=== PATIENT | female | born 2000 | race Caucasian/White ===

== ENCOUNTER 2019-05-09 19:51 | Emergency (ER) | payer SELFPAY ==
--- NOTE | ~2019-05-09 | XR_ITS ---
EXAMINATION: XR chest 1V portable DATE: 05/09/2019 20:35 INDICATION: Right upper chest pain. TECHNIQUE: A single frontal view of the chest was obtained. COMPARISON: None. FINDINGS: The chest demonstrates clear lungs without pneumonia, pleural effusion, or pneumothorax. Th e heart size is normal. IMPRESSION: 1. No acute cardiopulmonary disease. Reviewed, dictated and finalized at location A.
[2019-05-09 19:55] VITALS: BP 131/81; PULSE 96; RESP 18; TEMP 36.8; O2SAT 100
--- NOTE | 2019-05-09 20:14 | ED.CHESTPAIN ---
HPI - Chest Pain General Chief Complaint: Chest Pain Stated Complaint: chest and rib pains Time Seen by Provider: 05/09/19 19:57 Source: patient Mode of arrival: ambulatory Limitations: no limitations History of Present Illness HPI narrative: A 18 y/o pt has arrived to the ED with c/o intermittent right sided CP that started 2 days ago. Pt reports that exhaling aggravates her pain. The pt notes that sitting up alleviates her pain, but tums did not relieve her pain. She notes that she has not been partaking in any physical activities that could have caused her pain. She states that she woke up one morning and the pain was present and she contributed it to sleeping in a bad position. Pt denies purchasing a new mattress or pillow. She states that when she lays flat she has rib pain. Pt denies rhinorrhea, sneezing, fever, chills, back pain, trouble urinating, or coughing. She also denies a H/O smoking, drinking, or any previous episodes of CP. She also states that she is not taking any form of medication. Her LNMP was 04/13. complaint: chest pain Onset (ago): day(s) (2) Timing of current episode: episodic Prior episodes: No Pain location: right chest Relieving factors: sitting upright Exacerbating factors: other (expiration) Related Data Allergies Allergy/AdvReac Type Severity Reaction Status Date / Time No Known Allergies Allergy Unverified 05/09/19 19:52 Review of Systems Review of Systems: All systems reviewed & are unremarkable except as noted in HPI and below Constitutional: Constitutional: Denies chills and Denies fever(s) ENT: Denies other (rhinorrhea, sneezing) Cardiovascular: Cardiovascular: Reports chest pain and Denies other (previous episodes of CP) Respiratory: Respiratory: Denies cough Genitourinary: Genitourinary: Denies other (trouble urinating) Musculoskeletal: Musculoskeletal: Denies back pain and Reports other (rib pain when lying flat) [facility] Past Medical History Medical History (Updated 05/09/19 @ 20:58 by Jason Cadena) Bipolar disorder Surgical History Surgical History (Updated 05/09/19 @ 20:35 by Jason Cadena) History of skin surgery adilia removal Social History Social History (Updated 03/25/20 @ 20:36 by Jason Cadena) Smoking status: Never smoker Alcohol intake: never Gender identity (if verbalized by the patient): Female Exam Narrative: Exam Narrative: General appearance: Well-developed, well-nourished Skin: Normal color Head: Normocephalic, nontraumatic Eyes: Clear conjunctiva ENT: Oropharynx normal, ears normal, nose normal Neck: Supple, nontender Chest and respiratory: Airway patent, no respiratory distress, no accessory muscle use Heart: Regular rate/rhythm Abdomen: Soft, nontender, no organomegaly, quiet bowel sounds Vascular: Normal peripheral pulses, normal capillary refill. Musculoskeletal: Normal range of motion, moderate tenderness with light palpation of the right chest and right upper back and supraclavicular muscles. No bruises, no swelling, no rash. Neurologic: Alert and oriented ?3, [employer] is normal as tested, no gross motor deficit Course Course Emergency Course: Stable Vital Signs Vital signs: Vital Signs Temperature 36.8 C 05/09/19 19:55 Pulse Rate 96 05/09/19 19:55 Respiratory Rate 18 05/09/19 19:55 Blood Pressure 131/81 05/09/19 19:55 Pulse Oximetry 100 05/09/19 19:55 Temperature 36.8 C 05/09/19 19:55 Pulse Rate 100 05/09/19 20:25 Respiratory Rate 18 05/09/19 19:55 Blood Pressure 131/81 05/09/19 19:55 Pulse Oximetry 100 05/09/19 20:39 MDM - Chest Pain MDM Narrative Medical decision making narrative: 18 years old, no p
[2019-05-09 20:25] VITALS: PULSE 100
[2019-05-09] MEDS: ACETAMINOPHEN 325 MG TABLET 650 MG PO (20:37)
[2019-05-09] MEDS: IBUPROFEN 600 MG TABLET PO (20:37)
[2019-05-09 20:39] VITALS: O2SAT 100
== END 2019-05-09 21:30 | disposition home or self-care (01) ==
PROVIDERS: Emergency Provider Emergency Medicine
DX: R07.89 Other chest pain (principal)
CPT/HCPCS: 71045; 99283; A9270

== ENCOUNTER 2023-04-07 06:38 | Outpatient (CLI) | payer OTHER, SELFPAY ==
--- NOTE | ~2023-04-07 | MR_ITS ---
MRI of the lumbar spine Clinical History: Pain Technique: Axial T2-weighted images, and sagittal T1-weighted, T2-weighted, and and T2 fat-sat images were acquired. Findings: There is no fracture or subluxation of the lumbar spine. Vertebral bodies maintain normal h eight and alignment. No bone marrow signal abnormality seen. No disc bulge or herniation seen at any lumbar level. No spinal canal stenosis or neural foraminal na rrowing seen in the lumbar spine. Paravertebral soft tissues are unremarkable. Impression: Unremarkable exam. Reviewed, dictated and finalized at location M. [employer] Impression: Unremarkable exam.
== END 2023-04-07 06:39 | disposition home or self-care (01) ==
PROVIDERS: PCP Nurse Practitioner Family; Visit Provider Nurse Practitioner Family
DX: G89.29 Other chronic pain (principal); M54.41 Lumbago with sciatica, right side
CPT/HCPCS: 72148